=== PATIENT | male | born 1965 | race Caucasian/White ===

== ENCOUNTER 2020-04-12 03:11 | Emergency (ER) | payer MEDICARE, OTHER ==
[~2020-04-12] VITALS: Ht 185.4 cm; Wt 83.0 kg
[2020-04-12 03:19] VITALS: BP 132/83
[2020-04-12] MEDS ORDERED: LORazepam 1MG TABLET PO ONE (03:30)
[2020-04-12] MEDS ORDERED: OLANZAPINE 10 MG TABLET ONE (03:33)
[2020-04-12] MEDS ORDERED: LORazepam 1MG TABLET ONE (03:33)
--- NOTE | 2020-04-12 05:49 | NUR ---
D/c instructions given. Patient not willing to learn. Security called to escort patient out. Patient ambulatory with a steady gait. Belongings with patient.
[2020-04-12] MEDS ORDERED: OLANZAPINE 10 MG TABLET PO SCH (09:00)
== END 2020-04-12 05:51 | disposition home or self-care (01) ==
LOC: ED 03:46
DX: S09.90XA Unspecified injury of head, initial encounter (principal); F29 Unspecified psychosis not due to a substance or known physiological condition; F10.10 Alcohol abuse, uncomplicated; F15.10 Other stimulant abuse, uncomplicated; F17.210 Nicotine dependence, cigarettes, uncomplicated; Z72.9 Problem related to lifestyle, unspecified; X58.XXXA Exposure to other specified factors, initial encounter; Y93.89 Activity, other specified; Y92.89 Other specified places as the place of occurrence of the external cause; Y99.8 Other external cause status; Y90.0 Blood alcohol level of less than 20 mg/100 ml
CPT/HCPCS: 70450; 72125; 99285; 99406